=== PATIENT | male | born 1985 ===

== ENCOUNTER 2017-03-18 15:00 | Emergency (ER) | payer OTHER ==
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
--- NOTE | 2017-03-18 17:46 | RAD ---
Cervical spine three views History: Injury. Comparison: None available. Findings: Cervical spine is visualized from C1 through C7. Mild anterior osteophytosis at the C6-7 level. No significant prevertebral soft swelling. No evidence for acute displaced fracture or dislocation. Suboptimal view of the dens limits evaluation. Impression: Mild degenerative changes. If pain persists, consider MRI. Suboptimal view of the dens.
--- NOTE | 2017-03-18 17:58 | RAD ---
PROCEDURE: Radiographs of the Lumbar Spine. HISTORY: injury COMPARISON: No prior. FINDINGS: BONES: Current study reveals chronic moderate chronic appearing anterior wedge deformity of the T12 segment. Minimal anterior stature loss L1 segment. No acute compression fractures no retropulsed fragments. The remaining vertebral bodies otherwise exhibit normal stature. . Note made of lumbarized S1 segment. DISC SPACES: Disc space heights maintained. OTHER FINDINGS: None. IMPRESSION: No acute fractures. Moderate chronic anterior stature loss T12 and minimal chronic appearing anterior stature loss L1 segments.
[2017-03-18 18:05] VITALS: BP 134/80; PULSE 84; RESP 16; TEMP 97.9; O2SAT 99
== END 2017-03-18 18:05 | disposition home or self-care (01) ==
LOC: C.ER 15:00
DX: S16.1XXA Strain of muscle, fascia and tendon at neck level, initial encounter (principal); S39.012A Strain of muscle, fascia and tendon of lower back, initial encounter; V49.9XXA Car occupant (driver) (passenger) injured in unspecified traffic accident, initial encounter